=== PATIENT | male | born 1980 | race Caucasian/White ===

== ENCOUNTER 2017-06-11 16:31 | Inpatient (IN) | payer OTHER ==
[2017-06-11] MEDS ORDERED: SODIUM CHLORIDE 1,000 ML IV STA (17:25)
--- NOTE | 2017-06-11 17:25 | PDOC ---
Attending Attestation - HPI HPI: 06/11/17 19:02 The patient is a 36-year-old male who is homeless, with a significant past medical history of seizure disorder and schizophrenia, who presents to the ED via EMS, after being found seizing in a [place]. brought by ambulance to the ED after being found in a [place] seizing. The patient's seizure lasted for a few minutes and was accompanied a post ictal period that lasted approximately 30 minutes. He reports that he used to be on depakote for his seizures, but cannot afford the medication. On exam, the patient reports that he fell onto his right side and is now complaining of right arm and leg pain. <Aneta Bae - Last Filed: 06/11/17 19:11> - Resident Resident Name: Vincenzo Kam - ED Attending Attestation I have performed the following: I have examined & evaluated the patient, The case was reviewed & discussed with the resident, I agree w/resident's findings & plan, Exceptions are as noted - Physicial Exam PE: 06/11/17 20:29 Agree with resident's physical exam - Medical Decision Making 06/11/17 20:34 Undomiciled with seizure history schizophrenia and on any medications some suicidal ideation patient placed on one-to-one we'll CT head labs loaded with Depakote likely observe psychiatric consultation. <Roger Ramirez - Last Filed: 06/11/17 20:34> Attestations - Attestations 06/11/17 19:10 Documentation prepared by Aneta Bae, acting as biomedical equipment support specialist for Roger Ramirez MD. <Aneta Bae - Last Filed: 06/11/17 19:11>
[2017-06-11 17:26] VITALS: BMI 28.3
--- NOTE | 2017-06-11 17:33 | PDOC ---
History of Present Illness - General Chief Complaint: Seizure Stated Complaint: SEIZURE Time Seen by Provider: 06/11/17 17:02 History Source: Patient Exam Limitations: No Limitations - History of Present Illness Initial Comments: 06/11/17 17:27 36M with h/o seizure disorder and schizophrenia brought by ambulance to the ED after being [place] in a [place] seizing. According to patient he was seizing for a couple of minutes and post ictal period of 30 min with loss of feces. Patient is homeless and has currently no resources, no possible follow up or outside treatment. Used to take Depakote, doesn't remember the last time he has a seizure. said he fell on his left side, which hurts. 06/11/17 17:52 06/11/17 18:00 Past History - Past Medical History Allergies/Adverse Reactions: Allergies Allergy/AdvReac Type Severity Reaction Status Date / Time No Known Allergies Allergy Verified 06/11/17 17:26 Home Medications: Ambulatory Orders Unobtainable [Unobtainable] 06/11/17 COPD: No Psychiatric Problems: Yes (schizophrenic) Seizures: Yes - Suicide/Smoking/Psychosocial Hx Smoking History: Unknown if ever smoked Have you smoked in the past 12 months: No Number of Cigarettes Smoked Daily: 20 Information on smoking cessation initiated: No Hx Alcohol Use: No Drug/Substance Use Hx: No Substance Use Type: Alcohol, Marijuana Review of Systems - Review of Systems Able to Perform ROS?: Yes Is the patient limited Maori proficient: No Constitutional: No: Symptoms Reported HEENTM: No: Symptoms Reported Respiratory: No: Symptoms reported Cardiac (ROS): No: Symptoms Reported ABD/GI: No: Symptoms Reported : No: Symptoms Reported Musculoskeletal: No: Symptoms Reported Integumentary: No: Symptoms Reported Neurological: No: Symptoms reported All Other Systems: Reviewed and Negative *Physical Exam - Vital Signs Last Vital Signs Temp Pulse Resp BP Pulse Ox 98.5 F 92 H 18 121/71 99 06/11/17 16:31 06/11/17 16:31 06/11/17 16:31 06/11/17 16:31 06/11/17 16:31 - Physical Exam General Appearance: Yes: Disheveled HEENT: positive: EOMI, AMAIRANI, Normal ENT Inspection Respiratory/Chest: positive: Lungs Clear, Normal Breath Sounds. negative: Chest Tender, Respiratory Distress Cardiovascular: positive: Regular Rhythm, Regular Rate, S1, S2 Gastrointestinal/Abdominal: positive: Normal Bowel Sounds Musculoskeletal: positive: Decreased Range of Motion (pain over left hip/leg) Integumentary: positive: Normal Color, Warm Neurologic: positive: Responsive, Other (Flat affect). negative: Sensory Deficit ED Treatment Course - LABORATORY CBC & Chemistry Diagram: 06/11/17 18:50 06/11/17 18:50 - RADIOLOGY Radiology Studies Ordered: Category Date Time Status HEAD CT WITHOUT CONTRAST [CT] Stat CT Scan 06/11/17 17:25 Ordered Medical Decision Making - Medical Decision Making 06/11/17 18:00 basic lab worsup to r/o rhabdo ct head and hip xray for trauma 06/11/17 18:23 Patient admitted to hearing voices laughing at him and he wants to hurt himself. 1:1 care ordered. 06/11/17 18:24 06/11/17 18:57 Imaging and labs pending 06/11/17 19:[address] Franco *DC/Admit/Observation/Transfer Diagnosis at time of Disposition: Seizure - Referrals - Patient Instructions - Post Discharge Activity
--- NOTE | 2017-06-11 19:09 | PDOC ---
*Physical Exam - Vital Signs Last Vital Signs Temp Pulse Resp BP Pulse Ox 98.5 F 92 H 18 121/71 99 06/11/17 16:31 06/11/17 16:31 06/11/17 16:31 06/11/17 16:31 06/11/17 16:31 ED Treatment Course - LABORATORY CBC & Chemistry Diagram: 06/11/17 18:50 06/11/17 18:50 - Medications Given in the ED: ED Medications Discontinued Medications Generic Name Dose Route Start Last Admin Trade Name Freq PRN Reason Stop Dose Admin Sodium Chloride 1,000 mls @ 1,000 mls/hr 06/11/17 17:25 06/11/17 18:54 Normal Saline - IV 06/11/17 18:24 1,000 mls/hr ASDIR STA Administration Medical Decision Making - Medical Decision Making 06/11/17 19:08 Care taken over from Dr. Kam. 06/11/17 21:[address] Seaman who will evaluate in the AM. 06/12/17 01:31 Patient noted to have tremors and tongue fasciculations. Admits to drinking often and that last drink was 2 days ago. Librium 100 PO given for symptomatic treatment. *DC/Admit/Observation/Transfer Diagnosis at time of Disposition: Seizure - Discharge Dispostion Admit: Yes - Referrals - Patient Instructions - Post Discharge Activity
[2017-06-11 19:10] LABS: BASO % 0.3 % (0-2.0); EOS % 1.6 % (0-4.5); HEMATOCRIT 41.3 % (35.4-49); HEMOGLOBIN 14.1 GM/dL (11.7-16.9); LYMPH % 24.2 % (8-40); MCH 29.2 pg (25.7-33.7); MCHC 34.1 g/dl (32.0-35.9); MEAN CELL VOLUME 85.4 fl (80-96); MEAN PLT VOLUME 8.4 fl (7.5-11.1); MONO % 9.8 % (3.8-10.2); NEUT % 64.1 % (42.8-82.8); PLATELET COUNT 202 K/MM3 (134-434); RBC 4.83 M/mm3 (4.00-5.60); RDW 14.4 % (11.9-15.9); URINE APPEARANCE CLOUDY; URINE BILIRUBIN NEGATIVE (NEGATIVE); URINE BLOOD NEGATIVE (NEGATIVE); URINE COLOR YELLOW; URINE GLUCOSE (UA) NEGATIVE (NEGATIVE); URINE KETONE NEGATIVE (NEGATIVE); URINE LEUK ESTERASE NEGATIVE (NEGATIVE); URINE NITRITE NEGATIVE (NEGATIVE); URINE PROTEIN NEGATIVE (NEGATIVE)
[2017-06-11 19:39] LABS: ALBUMIN 4.1 g/dl (3.4-5.0); ANION GAP 7 (8-16); BLOOD UREA NITROGEN 14 mg/dL (7-18); CALCIUM 8.5 mg/dL (8.5-10.1); CHLORIDE 106 mmol/L (98-107); CO2 26 mmol/L (21-32); GLUCOSE,RANDOM 89 mg/dL (74-106); POTASSIUM 3.7 mmol/L (3.5-5.1); SODIUM 139 mmol/L (136-145)
[2017-06-11 19:44] LABS: ALK PHOS 66 U/L (45-117); BILIRUBIN,TOTAL 0.3 mg/dL (0.2-1.0); CREATININE 0.8 mg/dL (0.7-1.3); SGOT/AST 18 U/L (15-37); SGPT/ALT 39 U/L (12-78); TOT PROT 7.7 g/dl (6.4-8.2)
[2017-06-11 20:15] LABS: COCAINE, UR NEGATIVE ng/ml (CUTOFF=300); METHADONE, UR NEGATIVE ng/ml (CUTOFF=300); OPIATES, URI NEGATIVE ng/ml (CUTOFF=300); PHENCYCLIDINE,URINE NEGATIVE ng/ml (CUTOFF=25); URINE AMPHETAMINES NEGATIVE ng/ml (CUTOFF=500); URINE BARBITURATES NEGATIVE ng/ml (CUTOFF=200); URINE BENZODIAZEPINES NEGATIVE ng/ml (CUTOFF=200)
[2017-06-11] MEDS ORDERED: VALPROIC ACID 250 MG CAPSULE PO ONE ×2 (20:24→20:25)
[2017-06-11] MEDS ORDERED: DIVALPROEX SODIUM 500 MG TABLET E.C. ONE (20:34)
[2017-06-12] MEDS ORDERED: ACETAMINOPHEN 500 MG TABLET (FP) PO ONE (01:14)
[2017-06-12] MEDS ORDERED: chlordiazePOXIDE HCL 25 MG CAPSULE PO ONE (01:21)
[2017-06-12] MEDS ORDERED: ACETAMINOPHEN 325 MG TABLET (FP) ONE (01:26)
[2017-06-12] MEDS ORDERED: chlordiazePOXIDE HCL 25 MG CAPSULE ONE (01:26)
[2017-06-12] MEDS ORDERED: VALPROIC ACID 250 MG CAPSULE PO ONE (06:31)
[2017-06-12] MEDS ORDERED: DIVALPROEX SODIUM 500 MG TABLET E.C. ONE (06:38)
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
[2017-06-12] MEDS: SODIUM CHLORIDE 1,000 ML IV SCH ×2 (08:33→22:56)
[2017-06-12] MEDS ORDERED: levETIRAcetam 500 MG/5 ML INJECTION VIAL IVPB ONE (12:03)
[2017-06-12] MEDS: chlordiazePOXIDE HCL 25 MG CAPSULE PO SCH ×3 (12:07→22:13)
[2017-06-12] MEDS ORDERED: chlordiazePOXIDE HCL 25 MG CAPSULE PO PRN (12:15)
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
[2017-06-12] MEDS ORDERED: THIAMINE HCL 200 MG/2 ML VIAL IVPB ONE (13:30)
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
[2017-06-12 14:24] LABS: MAGNESIUM 1.9 mg/dL (1.8-2.4); PHOSPHOROUS 3.3 mg/dL (2.5-4.9); POTASSIUM 3.7 mmol/L (3.5-5.1)
[2017-06-12] MEDS: HEPARIN NA (PORCINE) 5,000 UNITS/ML 1ML VIAL SQ SCH ×2 (14:39→21:03)
[2017-06-12] MEDS ORDERED: PNEUMOC 13-VAL CONJ-DIP CRM/PF 0.5 ML DISP.SYRIN IM ONE (15:10)
[2017-06-12] MEDS ORDERED: FLU VACCINE QUAD 60 MCG/0.5 ML (MDV 17-18) IM ONE (15:30)
[2017-06-12] MEDS ORDERED: PNEUMOCOCCAL 23 VACCINE 0.5 ML VIAL IM ONE (15:30)
--- NOTE | 2017-06-12 16:35 | EKG ---
Test Reason : Blood Pressure : / mmHG Vent. Rate : 079 BPM Atrial Rate : 079 BPM P-R Int : 000 ms QRS Dur : 070 ms QT Int : 346 ms P-R-T Axes : 000 061 020 degrees QTc Int : 396 ms POOR DATA QUALITY, INTERPRETATION MAY BE ADVERSELY AFFECTED NORMAL SINUS RHYTHM NONSPECIFIC ST ABNORMALITY ABNORMAL ECG NO PREVIOUS ECGS AVAILABLE Confirmed by MORENA LORD MD ([id number]) on 06/12/2017 4:35:05 PM Referred By: Confirmed By:MORENA LORD MD
[2017-06-12] MEDS: VALPROIC ACID 250 MG CAPSULE PO SCH (17:13)
[2017-06-12] MEDS: OLANZapine 7.5 MG TABLET PO SCH (21:03)
[2017-06-12] MEDS ORDERED: levETIRAcetam 500 MG/5 ML INJECTION VIAL IVPB SCH (22:00)
[2017-06-13] MEDS: HEPARIN NA (PORCINE) 5,000 UNITS/ML 1ML VIAL SQ SCH ×3 (05:54→21:27)
[2017-06-13] MEDS: VALPROIC ACID 250 MG CAPSULE PO SCH ×2 (05:55→17:22)
[2017-06-13] MEDS: chlordiazePOXIDE HCL 25 MG CAPSULE PO SCH (05:57)
[2017-06-13 08:40] LABS: BASO % 0.4 % (0-2.0); EOS % 2.2 % (0-4.5); HEMATOCRIT 39.5 % (35.4-49); HEMOGLOBIN 13.5 GM/dL (11.7-16.9); LYMPH % 27.9 % (8-40); MCH 29.4 pg (25.7-33.7); MCHC 34.2 g/dl (32.0-35.9); MEAN CELL VOLUME 86.1 fl (80-96); MEAN PLT VOLUME 8.4 fl (7.5-11.1); MONO % 8.5 % (3.8-10.2); PLATELET COUNT 141 K/MM3 (134-434); RBC 4.59 M/mm3 (4.00-5.60); RDW 14.3 % (11.9-15.9); WHITE BLOOD COUNT 5.9 K/mm3 (4.0-10.0)
[2017-06-13 09:00] LABS: ANION GAP 8 (8-16); BLOOD UREA NITROGEN 11 mg/dL (7-18); CALCIUM 8.1 mg/dL (8.5-10.1); CHLORIDE 113 mmol/L (98-107); CO2 24 mmol/L (21-32); CREATININE 0.8 mg/dL (0.7-1.3); GLUCOSE,RANDOM 80 mg/dL (74-106); MAGNESIUM 2.1 mg/dL (1.8-2.4); POTASSIUM 3.6 mmol/L (3.5-5.1); SODIUM 145 mmol/L (136-145)
[2017-06-13] MEDS ORDERED: chlordiazePOXIDE HCL 25 MG CAPSULE PO SCH (11:00)
[2017-06-13] MEDS ORDERED: PT OWN MED DRAWER 7, Y5N ONE ×2 (11:13→20:22)
[2017-06-13] MEDS: THIAMINE HCL 100 MG TABLET (FP) PO SCH (11:21)
[2017-06-13] MEDS: FOLIC ACID 1 MG TABLET (FP) PO SCH (11:22)
[2017-06-13] MEDS: SODIUM CHLORIDE 1,000 ML IV SCH (11:23)
--- NOTE | 2017-06-13 15:07 | PN ---
Progress Note (short form) - Note Progress Note: Psych follow up: Still on 1:1. reports hearing voices, still vague about suicidal ideas and plans.ON Librium detox which should bne discontinued. Patient appears sedated. NO behavioral disturbences at this time. PLan: May need IN Patient Psych Admission if he continues to hear voices tellingt him to Kill himself.
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
[2017-06-13] MEDS ORDERED: ACETAMINOPHEN 325 MG TABLET (FP) ONE (19:46)
[2017-06-13] MEDS: ACETAMINOPHEN 325 MG TABLET (FP) PO PRN (19:59)
[2017-06-13] MEDS: OLANZapine 7.5 MG TABLET PO SCH (22:00)
[2017-06-13] MEDS: POLYETHYLENE GLYCOL 3350 119 GM BTL PO SCH (22:36)
[2017-06-13] MEDS ORDERED: chlordiazePOXIDE 5 MG CAPSULE PO ONE (23:45)
[2017-06-14] MEDS: HEPARIN NA (PORCINE) 5,000 UNITS/ML 1ML VIAL SQ SCH ×3 (06:00→21:57)
[2017-06-14] MEDS: VALPROIC ACID 250 MG CAPSULE PO SCH ×2 (06:15→17:38)
[2017-06-14] MEDS ORDERED: PT OWN MED DRAWER 7, Y5N ONE ×2 (08:59→17:35)
[2017-06-14] MEDS: FOLIC ACID 1 MG TABLET (FP) PO SCH (09:04)
[2017-06-14] MEDS: THIAMINE HCL 100 MG TABLET (FP) PO SCH (09:04)
[2017-06-14] MEDS: POLYETHYLENE GLYCOL 3350 119 GM BTL PO SCH ×2 (09:10→21:56)
[2017-06-14] MEDS: SODIUM CHLORIDE 1,000 ML IV SCH (09:17)
[2017-06-14] MEDS ORDERED: chlordiazePOXIDE 5 MG CAPSULE PO SCH (11:00)
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
--- NOTE | 2017-06-14 14:55 | PN ---
Progress Note (short form) - Note Progress Note: Patient seen for Psych follow up: Patient is onh 1:1. MS: alert, oriented, able to make eye contact. patient continues to hear voices telling him bad things ant to hurt himself. Patient displaying Blunted affect. Cognition Intact. Plan: 1: Continue with 1:1 2) Transfer to Psych In Patient unit for psych Stabilization
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
[2017-06-14] MEDS: DOCUSATE SODIUM 100 MG CAPSULE (FP) PO SCH (21:55)
[2017-06-14] MEDS: OLANZapine 7.5 MG TABLET PO SCH (21:56)
[2017-06-14] MEDS ORDERED: chlordiazePOXIDE 5 MG CAPSULE PO ONE (23:28)
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
[2017-06-15] MEDS: VALPROIC ACID 250 MG CAPSULE PO SCH ×2 (06:12→17:16)
[2017-06-15] MEDS: HEPARIN NA (PORCINE) 5,000 UNITS/ML 1ML VIAL SQ SCH ×3 (06:12→21:15)
[2017-06-15] MEDS: SODIUM CHLORIDE 1,000 ML IV SCH ×2 (07:19→20:14)
[2017-06-15] MEDS: FOLIC ACID 1 MG TABLET (FP) PO SCH (09:31)
[2017-06-15] MEDS: POLYETHYLENE GLYCOL 3350 119 GM BTL PO SCH ×2 (09:31→21:15)
[2017-06-15] MEDS: THIAMINE HCL 100 MG TABLET (FP) PO SCH (09:31)
[2017-06-15] MEDS ORDERED: PT OWN MED DRAWER 7, Y5N ONE ×2 (17:11→21:13)
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
[2017-06-15] MEDS: ACETAMINOPHEN 325 MG TABLET (FP) PO PRN (20:13)
[2017-06-15] MEDS: OLANZapine 2.5 MG TABLET PO SCH (21:15)
[2017-06-15] MEDS: DOCUSATE SODIUM 100 MG CAPSULE (FP) PO SCH (21:15)
[2017-06-15] MEDS ORDERED: OLANZAPINE 2.5 MG, OLANZAPINE 5 MG PO SCH (22:00)
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
[2017-06-16] MEDS: HEPARIN NA (PORCINE) 5,000 UNITS/ML 1ML VIAL SQ SCH ×3 (06:14→21:14)
[2017-06-16] MEDS: VALPROIC ACID 250 MG CAPSULE PO SCH ×2 (06:14→17:00)
[2017-06-16] MEDS: FOLIC ACID 1 MG TABLET (FP) PO SCH (11:23)
[2017-06-16] MEDS: THIAMINE HCL 100 MG TABLET (FP) PO SCH (11:23)
[2017-06-16] MEDS: POLYETHYLENE GLYCOL 3350 119 GM BTL PO SCH ×2 (14:07→21:13)
[2017-06-16] MEDS ORDERED: PT OWN MED DRAWER 7, Y5N ONE (16:32)
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
[2017-06-16] MEDS: ACETAMINOPHEN 325 MG TABLET (FP) PO PRN (20:24)
[2017-06-16] MEDS: DOCUSATE SODIUM 100 MG CAPSULE (FP) PO SCH (21:13)
[2017-06-16] MEDS: OLANZapine 2.5 MG TABLET PO SCH (21:17)
[2017-06-17] MEDS: SODIUM CHLORIDE 1,000 ML IV SCH ×2 (03:24→15:08)
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
[2017-06-17] MEDS: VALPROIC ACID 250 MG CAPSULE PO SCH ×2 (06:02→18:01)
[2017-06-17] MEDS: HEPARIN NA (PORCINE) 5,000 UNITS/ML 1ML VIAL SQ SCH ×3 (06:02→21:36)
[2017-06-17] MEDS: THIAMINE HCL 100 MG TABLET (FP) PO SCH (10:09)
[2017-06-17] MEDS: FOLIC ACID 1 MG TABLET (FP) PO SCH (10:09)
[2017-06-17] MEDS: POLYETHYLENE GLYCOL 3350 119 GM BTL PO SCH ×2 (10:09→21:36)
--- NOTE | 2017-06-17 14:07 | PN ---
Progress Note (short form) - Note Progress Note: Psycvh follow up: Patient had been on 1:1 for suicidal thinking and behaviour. p[atient had been reporting Command Hallucinations and has guilt feelings about loss of his family members, Voices are accusatory and blaming him for their . told Nurse this am that he is dtill feeling Suicidal. He reiterated same thing tyo me as well. Plan: Transfer to In Patient psych unit for further evaluation and treatment.
[2017-06-17] MEDS ORDERED: PT OWN MED DRAWER 7, Y5N ONE ×2 (17:52→21:33)
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
[2017-06-17] MEDS: DOCUSATE SODIUM 100 MG CAPSULE (FP) PO SCH (21:36)
[2017-06-17] MEDS: OLANZapine 2.5 MG TABLET PO SCH (21:37)
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
[2017-06-18] MEDS: HEPARIN NA (PORCINE) 5,000 UNITS/ML 1ML VIAL SQ SCH ×3 (06:07→21:42)
[2017-06-18] MEDS: VALPROIC ACID 250 MG CAPSULE PO SCH ×2 (06:07→17:37)
[2017-06-18] MEDS: POLYETHYLENE GLYCOL 3350 119 GM BTL PO SCH ×3 (06:09→21:44)
[2017-06-18] MEDS: THIAMINE HCL 100 MG TABLET (FP) PO SCH (09:57)
[2017-06-18] MEDS: FOLIC ACID 1 MG TABLET (FP) PO SCH (09:57)
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
[2017-06-18] MEDS ORDERED: PT OWN MED DRAWER 7, Y5N ONE ×3 (17:19→17:36)
[2017-06-18] MEDS: ACETAMINOPHEN 325 MG TABLET (FP) PO PRN (17:31)
[2017-06-18] MEDS: DOCUSATE SODIUM 100 MG CAPSULE (FP) PO SCH (21:42)
[2017-06-18] MEDS: OLANZapine 2.5 MG TABLET PO SCH (21:43)
[2017-06-19] MEDS ORDERED: PT OWN MED DRAWER 7, Y5N ONE ×3 (05:45→21:31)
[2017-06-19] MEDS: POLYETHYLENE GLYCOL 3350 119 GM BTL PO SCH ×3 (06:23→21:37)
[2017-06-19] MEDS: HEPARIN NA (PORCINE) 5,000 UNITS/ML 1ML VIAL SQ SCH (06:23)
[2017-06-19] MEDS: VALPROIC ACID 250 MG CAPSULE PO SCH ×2 (06:23→17:40)
[2017-06-19] MEDS: THIAMINE HCL 100 MG TABLET (FP) PO SCH (09:51)
[2017-06-19] MEDS: FOLIC ACID 1 MG TABLET (FP) PO SCH (09:51)
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
[2017-06-19] MEDS: ACETAMINOPHEN 325 MG TABLET (FP) PO PRN (16:46)
[2017-06-19] MEDS: DOCUSATE SODIUM 100 MG CAPSULE (FP) PO SCH (21:35)
[2017-06-19] MEDS: OLANZapine 2.5 MG TABLET PO SCH (21:36)
[2017-06-20] MEDS ORDERED: PT OWN MED DRAWER 7, Y5N ONE ×2 (05:42→14:13)
[2017-06-20] MEDS: VALPROIC ACID 250 MG CAPSULE PO SCH (05:46)
[2017-06-20] MEDS: POLYETHYLENE GLYCOL 3350 119 GM BTL PO SCH ×2 (05:47→15:47)
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
[2017-06-20] MEDS: THIAMINE HCL 100 MG TABLET (FP) PO SCH (10:49)
[2017-06-20] MEDS: FOLIC ACID 1 MG TABLET (FP) PO SCH (10:49)
[2017-06-20 15:05] VITALS: BP 101/57; PULSE 80; TEMP 97.8
--- NOTE | 2017-06-20 15:30 | PN ---
Progress Note (short form) - Note Progress Note: Psych follow up: Patient seen for psych follow up. Has been on 1:1 for auditory hallucinations and suicidal thoughts. Patient has responded to Zyprexa well. Has been sleeping and eating well. No reports of any self damaging behaviour. Patient feels he is better and wants to be discharged. He will go to [facility] where he is known and will stay and seek mental health services there. Plan. D/C 1:1 2) Discharge if he is medically stable. 3) zyprexa 5mg po hs.
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
== END 2017-06-20 17:00 | disposition home or self-care (01) | DRG 53 ==
LOC: JER 16:31 → JERBED 06-12 06:33 → OBSVTOIN 06-12 06:33 → J8W 06-12 10:13
PROVIDERS: ADMIT Internal Medicine; ATTEND Internal Medicine
PROC: HZ2ZZZZ Detoxification Services for Substance Abuse Treatment (ICD-10-PCS; principal; 2017-06-12)
DX: G40.89 Other seizures (principal); R45.851 Suicidal ideations; G93.89 Other specified disorders of brain; F20.9 Schizophrenia, unspecified; Z59.0 Homelessness; F12.10 Cannabis abuse, uncomplicated; F10.239 Alcohol dependence with withdrawal, unspecified; Y90.0 Blood alcohol level of less than 20 mg/100 ml; F17.210 Nicotine dependence, cigarettes, uncomplicated; Z91.14 Patient's other noncompliance with medication regimen; Z87.820 Personal history of traumatic brain injury; R51 Headache
CPT/HCPCS: 36415; 70450-TC; 73523-TC; 73610-TC-RT; 73630-TC-RT; 80048; 80053; 80164; 80307; 81003; 83735; 84100; 84132; 85025; 90688; 90732; 93005; 93010; 99285-25; G0009; J1644

== ENCOUNTER 2017-06-22 23:09 | Emergency (ER) | payer OTHER ==
[2017-06-22 23:25] VITALS: BMI 26.6
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
[2017-06-23] MEDS ORDERED: DIVALPROEX SODIUM 500 MG TABLET E.C. PO ONE (01:41)
[2017-06-23] MEDS ORDERED: levETIRAcetam 500 MG/5 ML INJECTION VIAL IVPB ONE (01:42)
[2017-06-23] MEDS ORDERED: DIVALPROEX SODIUM 500 MG TABLET E.C. ONE (01:51)
[2017-06-23 02:00] LABS: BASO % 0.6 % (0-2.0); EOS % 1.9 % (0-4.5); HEMATOCRIT 43.2 % (35.4-49); HEMOGLOBIN 14.4 GM/dL (11.7-16.9); LYMPH % 23.8 % (8-40); MCH 29.5 pg (25.7-33.7); MCHC 33.3 g/dl (32.0-35.9); MEAN CELL VOLUME 88.5 fl (80-96); MEAN PLT VOLUME 8.6 fl (7.5-11.1); MONO % 14.5 % (3.8-10.2); NEUT % 59.2 % (42.8-82.8); PLATELET COUNT 136 K/MM3 (134-434); RBC 4.88 M/mm3 (4.00-5.60); RDW 15.2 % (11.9-15.9); WHITE BLOOD COUNT 8.8 K/mm3 (4.0-10.0)
[2017-06-23] MEDS ORDERED: levETIRAcetam 500 MG TABLET (FP) PO ONE (02:03)
[2017-06-23 02:34] LABS: ALK PHOS 52 U/L (45-117); ANION GAP 8 (8-16); BILIRUBIN,TOTAL 0.3 mg/dL (0.2-1.0); BLOOD UREA NITROGEN 15 mg/dL (7-18); CHLORIDE 106 mmol/L (98-107); CO2 26 mmol/L (21-32); CREATININE 0.8 mg/dL (0.7-1.3); GLUCOSE,RANDOM 74 mg/dL (74-106); SGPT/ALT 59 U/L (12-78); SODIUM 140 mmol/L (136-145); TOT PROT 7.9 g/dl (6.4-8.2)
[2017-06-23 02:44] LABS: POTASSIUM 3.9 mmol/L (3.5-5.1); SGOT/AST 27 U/L (15-37)
--- NOTE | 2017-06-23 06:16 | PDOC ---
*Physical Exam - Vital Signs Last Vital Signs Temp Pulse Resp BP Pulse Ox 98.7 F 101 H 16 103/69 97 06/22/17 23:22 06/22/17 23:22 06/23/17 00:31 06/22/17 23:22 06/22/17 23:22 ED Treatment Course - LABORATORY CBC & Chemistry Diagram: 06/23/17 01:53 06/23/17 01:53 - ADDITIONAL ORDERS Additional order review: Laboratory Results 06/23/17 01:53 Sodium 140 Potassium 3.9 Chloride 106 Carbon Dioxide 26 Anion Gap 8 BUN 15 D Creatinine 0.8 Creat Clearance w eGFR > 60 Random Glucose 74 Calcium 9.0 Total Bilirubin 0.3 AST 27 D ALT 59 D Alkaline Phosphatase 52 D Total Protein 7.9 Albumin 4.0 06/23/17 01:53 RBC 4.88 MCV 88.5 MCHC 33.3 RDW 15.2 MPV 8.6 Neutrophils % 59.2 Lymphocytes % 23.8 Monocytes % 14.5 H Eosinophils % 1.9 Basophils % 0.6 - Medications Given in the ED: ED Medications Discontinued Medications Generic Name Dose Route Start Last Admin Trade Name Freq PRN Reason Stop Dose Admin Divalproex Sodium 1,000 mg 06/23/17 01:41 06/23/17 01:53 Depakote - PO 06/23/17 01:42 1,000 mg ONCE ONE Administration Levetiracetam 1,000 mg 06/23/17 01:42 06/23/17 02:03 Keppra Injection - IVPB 06/23/17 01:43 1,000 mg ONCE ONE Administration Medical Decision Making - Medical Decision Making 06/23/17 06:18 patient has not had a seizure since he was given medication early in the shift. Pt to be discharged *DC/Admit/Observation/Transfer Diagnosis at time of Disposition: Seizure - Discharge Dispostion Disposition: HOME Condition at time of disposition: Improved Admit: No - Referrals Referrals: Adolfo Lester DO [Staff Physician] - - Patient Instructions Printed Discharge Instructions: DI for Seizure Disorder -- Adult Additional Instructions: Please follow up with the neurologist referred to you here in the ER. Take medication as directed. - Post Discharge Activity
[2017-06-23 06:34] VITALS: BP 110/60; PULSE 80; TEMP 98
== END 2017-06-23 06:44 | disposition home or self-care (01) ==
LOC: JER 23:09
PROC: 3E033GC Introduction of Other Therapeutic Substance into Peripheral Vein, Percutaneous Approach (ICD-10-PCS; principal; 2017-06-22)
DX: G40.909 Epilepsy, unspecified, not intractable, without status epilepticus (principal); F20.9 Schizophrenia, unspecified; F32.9 Major depressive disorder, single episode, unspecified; Z91.14 Patient's other noncompliance with medication regimen; F12.10 Cannabis abuse, uncomplicated; F17.210 Nicotine dependence, cigarettes, uncomplicated; G93.89 Other specified disorders of brain; Z87.820 Personal history of traumatic brain injury; Z59.0 Homelessness
CPT/HCPCS: 36415; 80053; 85025; 96374; 99282-25

== ENCOUNTER 2017-06-24 20:31 | Inpatient (IN) | payer OTHER ==
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
[2017-06-24 21:06] VITALS: BMI 25.8
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
[2017-06-24] MEDS ORDERED: VALPROIC ACID 250 MG CAPSULE PO ONE (22:16)
[2017-06-24] MEDS ORDERED: OLANZapine 7.5 MG TABLET PO ONE (22:16)
[2017-06-24] MEDS ORDERED: DIVALPROEX SODIUM 500 MG TABLET E.C. ONE (22:43)
[2017-06-24] MEDS ORDERED: OLANZapine 10 MG TABLET ONE (22:43)
[2017-06-24 23:40] LABS: BASO % 0.4 % (0-2.0); EOS % 1.4 % (0-4.5); HEMATOCRIT 39.6 % (35.4-49); HEMOGLOBIN 13.7 GM/dL (11.7-16.9); LYMPH % 19.4 % (8-40); MCH 29.8 pg (25.7-33.7); MCHC 34.5 g/dl (32.0-35.9); MEAN CELL VOLUME 86.6 fl (80-96); MEAN PLT VOLUME 9.1 fl (7.5-11.1); MONO % 8.8 % (3.8-10.2); RBC 4.58 M/mm3 (4.00-5.60); RDW 15.3 % (11.9-15.9); WHITE BLOOD COUNT 6.8 K/mm3 (4.0-10.0)
[2017-06-25 00:33] LABS: URINE APPEARANCE CLOUDY; URINE BILIRUBIN NEGATIVE (NEGATIVE); URINE BLOOD NEGATIVE (NEGATIVE); URINE COLOR YELLOW; URINE GLUCOSE (UA) NEGATIVE (NEGATIVE); URINE KETONE NEGATIVE (NEGATIVE); URINE LEUK ESTERASE NEGATIVE (NEGATIVE); URINE NITRITE NEGATIVE (NEGATIVE); URINE PROTEIN NEGATIVE (NEGATIVE); URINE UROBILINOGEN 4.0 E.U/dl mg/dL (0.2-1.0)
[2017-06-25 00:51] LABS: COCAINE, UR NEGATIVE ng/ml (CUTOFF=300); METHADONE, UR NEGATIVE ng/ml (CUTOFF=300); OPIATES, URI NEGATIVE ng/ml (CUTOFF=300); URINE AMPHETAMINES NEGATIVE ng/ml (CUTOFF=500); URINE BARBITURATES NEGATIVE ng/ml (CUTOFF=200)
[2017-06-25 00:53] LABS: URINE BENZODIAZEPINES POSITIVE ng/ml (CUTOFF=200)
[2017-06-25 00:54] LABS: PHENCYCLIDINE,URINE POSITIVE ng/ml (CUTOFF=25)
[2017-06-25 01:33] LABS: ALBUMIN 3.8 g/dl (3.4-5.0); ANION GAP 8 (8-16); BILIRUBIN,TOTAL 0.2 mg/dL (0.2-1.0); BLOOD UREA NITROGEN 19 mg/dL (7-18); CALCIUM 8.9 mg/dL (8.5-10.1); CHLORIDE 105 mmol/L (98-107); CO2 30 mmol/L (21-32); CREATININE 0.9 mg/dL (0.7-1.3); GLUCOSE,RANDOM 110 mg/dL (74-106); MAGNESIUM 2.2 mg/dL (1.8-2.4); POTASSIUM 4.3 mmol/L (3.5-5.1); SGOT/AST 18 U/L (15-37); SGPT/ALT 45 U/L (12-78); SODIUM 143 mmol/L (136-145); TOT PROT 7.7 g/dl (6.4-8.2)
[2017-06-25 01:34] LABS: ALK PHOS 61 U/L (45-117)
[2017-06-25 03:13] LABS: PLATELET COUNT 193 K/MM3 (134-434)
--- NOTE | 2017-06-25 09:20 | EKG ---
Test Reason : Blood Pressure : / mmHG Vent. Rate : 090 BPM Atrial Rate : 090 BPM P-R Int : 148 ms QRS Dur : 066 ms QT Int : 332 ms P-R-T Axes : 042 050 036 degrees QTc Int : 406 ms POOR DATA QUALITY, INTERPRETATION MAY BE ADVERSELY AFFECTED NORMAL SINUS RHYTHM NORMAL ECG WHEN COMPARED WITH ECG OF 12-JUN-2017 08:22, SINUS RHYTHM HAS REPLACED JUNCTIONAL RHYTHM Confirmed by TINO WHATLEY, YUNIEL ([id number]) on 06/25/2017 9:20:10 AM Referred By: Confirmed By:YUNIEL JIMÉNEZ MD
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
--- NOTE | 2017-06-25 11:05 | CON.PSY ---
Psychiatry Consult Chief Complaint: I want to kill myself. Symptoms: reports: Suicidality, Self destructive thoughts - Previous Psychiatric Treatment Outpatient: Less than 6 mos ago Inpatient: 2 or more prior admissions - Previous Substance Abuse Treatment Outpatient: None Inpatient: None - Reason for Previous Treatment Reason for Previous Treatment: Psychotic Episode - Allergies Allergies: Allergies Allergy/AdvReac Type Severity Reaction Status Date / Time No Known Allergies Allergy Verified 06/24/17 21:00 - Current Living Status Usual Living Arrangement: Alone - Current Mental Status Evaluation Appearance: Disheveled Attitude: Uncooperative - Affect Affect: Constrictive Appropriateness: Not Appropriate - Mood Mood: Irritable - Speech/Language Expressive: Coherent - Psychomotor Activity Psychomotor Activity: Slowed - Thought Process Thought Process: Circumstantial - Thought Content Type: Auditory Delusions: Present Type: Persectory - Self Perception Self Perception: No Impairment - Cognition Attention: Alert Orientation: Time Memory, Immediate Recall: Intact Memory, Short Term: 2/3 Memory, Remote: Impaired - Concentration Serial Sevens Intact: No Simple Calculations Intact: No - Abstraction Proverb Interpretation: Intact Judgement: Moderately Impaired - Insight Insight: Impaired - Impulse Control Impulse Control: Moderately Impaired - Suicidal Ideation Suicidal Ideation: Yes - Homicidal Ideation Homicidal Ideation: No Assessment/Plan AQdmit to In [facility] FOR PSYCH STABILIZATION
--- NOTE | 2017-06-25 18:20 | PDOC ---
*Physical Exam - Vital Signs Last Vital Signs Temp Pulse Resp BP Pulse Ox 98.3 F 86 18 113/77 98 06/24/17 21:01 06/25/17 16:18 06/25/17 16:18 06/25/17 16:18 06/25/17 16:18 - Physical Exam Comments: 06/25/17 18:19 pt with suicidal ideations awaiting placement. will admit. ED Treatment Course - LABORATORY CBC & Chemistry Diagram: 06/24/17 23:11 06/24/17 23:11 - ADDITIONAL ORDERS Additional order review: 06/24/17 23:11 RBC 4.58 MCV 86.6 MCHC 34.5 RDW 15.3 MPV 9.1 Neutrophils % 70.0 Lymphocytes % 19.4 Monocytes % 8.8 Eosinophils % 1.4 Basophils % 0.4 - Medications Given in the ED: ED Medications Discontinued Medications Generic Name Dose Route Start Last Admin Trade Name Freq PRN Reason Stop Dose Admin Olanzapine 7.5 mg 06/24/17 22:16 06/24/17 22:54 Zyprexa - PO 06/24/17 22:17 7.5 mg ONCE ONE Administration Valproic Acid 500 mg 06/24/17 22:16 06/24/17 22:54 Depakene - PO 06/24/17 22:17 500 mg ONCE ONE Administration *DC/Admit/Observation/Transfer Diagnosis at time of Disposition: Suicidal ideation, PCP abuse - Discharge Dispostion Condition at time of disposition: Fair Admit: Yes - Referrals - Patient Instructions - Post Discharge Activity Forms/Work/School Notes: My Personal Safety Plan
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
[2017-06-25] MEDS ORDERED: QUEtiapine FUMARATE 100 MG TABLET (FP) ONE (23:51)
[2017-06-25] MEDS ORDERED: DIVALPROEX SODIUM 500 MG TABLET E.C. ONE (23:51)
[2017-06-25] MEDS: VALPROIC ACID 250 MG CAPSULE PO SCH (23:52)
[2017-06-25] MEDS: QUEtiapine FUMARATE 100 MG TABLET (FP) PO SCH (23:52)
[2017-06-26 05:48] LABS: HEMATOCRIT 39.4 % (35.4-49); HEMOGLOBIN 13.4 GM/dL (11.7-16.9); MCH 29.4 pg (25.7-33.7); MEAN CELL VOLUME 86.6 fl (80-96); MEAN PLT VOLUME 8.1 fl (7.5-11.1); PLATELET COUNT 169 K/MM3 (134-434); RBC 4.55 M/mm3 (4.00-5.60); RDW 15.2 % (11.9-15.9); WHITE BLOOD COUNT 5.7 K/mm3 (4.0-10.0)
[2017-06-26 06:29] LABS: ANION GAP 6 (8-16); BLOOD UREA NITROGEN 15 mg/dL (7-18); CALCIUM 8.5 mg/dL (8.5-10.1); CHLORIDE 107 mmol/L (98-107); CO2 27 mmol/L (21-32); CREATININE 0.8 mg/dL (0.7-1.3); GLUCOSE,RANDOM 83 mg/dL (74-106); PHOSPHOROUS 3.7 mg/dL (2.5-4.9); POTASSIUM 3.4 mmol/L (3.5-5.1); SODIUM 140 mmol/L (136-145)
[2017-06-26] MEDS: QUEtiapine FUMARATE 100 MG TABLET (FP) PO SCH (10:10)
[2017-06-26] MEDS: VALPROIC ACID 250 MG CAPSULE PO SCH ×2 (10:10→21:55)
[2017-06-26] MEDS ORDERED: POTASSIUM CHLORIDE ORAL LIQUID 20 MEQ/15 ML PO ONE (12:59)
--- NOTE | 2017-06-26 12:59 | PN ---
Progress Note (short form) - Note Progress Note: currently asymptomatic. states he is currently not hearing any voices but was hearing them yesterday, but can not recall what they were telling him to do. he has been hearing them on and off for several months. sometimes they tell him to do things but would not inform me of what they tell him. has been in inpatient psychiatric center in the past for these symptoms and told him to start seroquel. unclear if he was taking the medication. stopped his antiseizure medications several months ago. did have a seizure a year ago. denies CP, SOB, fever, chills, N/V/C/D Current Medications Generic Name Dose Route Start Last Admin Trade Name Freq PRN Reason Stop Dose Admin Lorazepam 1 mg 06/25/17 22:03 Ativan - PO Q8H PRN WITHDRAWAL(CONT SUBST) Quetiapine Fumarate 100 mg 06/25/17 21:30 06/26/17 10:10 Seroquel - PO 100 mg DAILY CELIA Administration Valproic Acid 500 mg 06/25/17 22:00 06/26/17 10:10 Depakene - PO 500 mg BID CELIA Administration Last Vital Signs Temp Pulse Resp BP Pulse Ox 98.2 F 82 16 92/59 82 L 06/26/17 12:31 06/26/17 12:31 06/26/17 12:31 06/26/17 12:31 06/26/17 12:31 General NAD, flat affect CV S1 S2 RRR no murmur/rub/gallop Lungs CTA B/L No wheezing/rales/rhonchi Abdomen soft NT/ND Extremities no pedal edema CBCD WBC 5.7 K/mm3 (4.0-10.0) 06/26/17 05:39 RBC 4.55 M/mm3 (4.00-5.60) 06/26/17 05:39 Hgb 13.4 GM/dL (11.7-16.9) 06/26/17 05:39 Hct 39.4 % (35.4-49) 06/26/17 05:39 MCV 86.6 fl (80-96) 06/26/17 05:39 MCHC 34.0 g/dl (32.0-35.9) 06/26/17 05:39 RDW 15.2 % (11.9-15.9) 06/26/17 05:39 Plt Count 169 K/MM3 (134-434) 06/26/17 05:39 MPV 8.1 fl (7.5-11.1) D 06/26/17 05:39 CMP Sodium 140 mmol/L (136-145) 06/26/17 05:39 Potassium 3.4 mmol/L (3.5-5.1) L D 06/26/17 05:39 Chloride 107 mmol/L (98-107) 06/26/17 05:39 Carbon Dioxide 27 mmol/L (21-32) 06/26/17 05:39 Anion Gap 6 (8-16) L 06/26/17 05:39 BUN 15 mg/dL (7-18) D 06/26/17 05:39 Creatinine 0.8 mg/dL (0.7-1.3) 06/26/17 05:39 Creat Clearance w eGFR > 60 (>60) 06/24/17 23:11 Calcium 8.5 mg/dL (8.5-10.1) 06/26/17 05:39 Total Bilirubin 0.2 mg/dL (0.2-1.0) D 06/24/17 23:11 AST 18 U/L (15-37) D 06/24/17 23:11 ALT 45 U/L (12-78) D 06/24/17 23:11 Alkaline Phosphatase 61 U/L (45-117) 06/24/17 23:11 Total Protein 7.7 g/dl (6.4-8.2) 06/24/17 23:11 Albumin 3.8 g/dl (3.4-5.0) 06/24/17 23:11 A/P 36yo M with PMH seizure disorder presented to the ER with suicidal attempt after smoking PCP 1. Suicidal idealiations- possible induced from PCP however can not r/o schizoaffective disorder. will cont seroquel for now. 1:1 observation. no sharp objects or cords in the room 2. Hypokalemia- KCl po 3. Seizure- valproic acid level sub-therapeutic. as pt has not exhibited any seizure like activity. no indication for aggressively increasing level. cont home dosing 4. DVT ppx- EAM 5. has been 2PC committed for involuntarty psych evaluation. awaiting bed availability Visit type - Emergency Visit Emergency Visit: Yes ED Registration Date: 06/25/17 Care time: The patient presented to the Emergency Department on the above date and was hospitalized for further evaluation of their emergent condition. - New Patient This patient is new to me today: Yes Date on this admission: 06/26/17 - Critical Care Critical Care patient: No - Discharge Referral Referred to [facility] No
[2017-06-26] MEDS: LORazepam 1 MG TABLET PO PRN (21:56)
[2017-06-27 08:25] LABS: CHLORIDE 105 mmol/L (98-107); POTASSIUM 3.9 mmol/L (3.5-5.1); SODIUM 140 mmol/L (136-145)
[2017-06-27 08:39] LABS: ANION GAP 9 (8-16); BLOOD UREA NITROGEN 20 mg/dL (7-18); CO2 26 mmol/L (21-32); CREATININE 0.9 mg/dL (0.7-1.3); GLUCOSE,RANDOM 83 mg/dL (74-106); MAGNESIUM 2.3 mg/dL (1.8-2.4)
--- NOTE | 2017-06-27 08:39 | PN ---
Teaching Attending Note Name of Resident: Malissa Olivas ATTENDING PHYSICIAN STATEMENT I saw and evaluated the patient. I reviewed the resident's note and discussed the case with the resident. I agree with the resident's findings and plan as documented. SUBJECTIVE:no complaints. states he has not been hearing voices since last night. no CP, SOB, fever, chills, N/V/C/D, auditory/visual/tactile hallucinations OBJECTIVE: Last Vital Signs Temp Pulse Resp BP Pulse Ox 97.5 F L 64 18 96/62 97 06/27/17 06:00 06/27/17 06:00 06/27/17 06:00 06/27/17 06:00 06/26/17 21:00 General NAD, resting comfortable, flat affect ASSESSMENT AND PLAN: 36yo M with PMH seizure disorder presented to the ER with suicidal attempt after smoking PCP 1. Suicidal idealiations- possible induced from PCP however can not r/o schizoaffective disorder. no longer hearing voices. would benefit from psychiatric evaluation as pt is a threat to himself and others. can not guarantee pt will follow up as outpatient. cont seroquel for now. 1:1 observation. no sharp objects or cords in the room 2. Hypokalemia- resolved 3. Seizure- valproic acid level sub-therapeutic. as pt has not exhibited any seizure like activity. cont home dosing 4. DVT ppx- EAM 5. has been 2PC committed for involuntary psych evaluation. awaiting bed availability
[2017-06-27] MEDS ORDERED: QUEtiapine FUMARATE 50 MG TABLET ONE (08:57)
[2017-06-27] MEDS ORDERED: PT OWN MED DRAWER 7, Y5N ONE (08:57)
[2017-06-27] MEDS: VALPROIC ACID 250 MG CAPSULE PO SCH ×2 (08:59→21:37)
[2017-06-27] MEDS: QUEtiapine FUMARATE 100 MG TABLET (FP) PO SCH (08:59)
--- NOTE | 2017-06-27 12:56 | PN ---
Physical Exam: SUBJECTIVE: Patient seen and examined. Offers no new complaints. No acute events overnight. Patient says he has constant thoughts of telling him to do bad things. He says he tries to clear his head so he wouldn't listen to them. Denies suicidal, homicidal ideations. Denies chest pain, sob, dizziness, abdominal pain, nausea and vomiting. OBJECTIVE: Vital Signs Period Temp Pulse Resp BP Sys/Crum Pulse Ox Last 24 Hr 97.5 F-99.2 F 64-88 16-20 92-114/55-62 96-97 GENERAL: Patient with flat affect, A/o x 3. HEAD: Normal with no signs of trauma. EYES: conjunctiva clear. ENT: oropharynx clear without exudates, moist mucous membranes. NECK: supple. LUNGS: Breath sounds equal, clear to auscultation bilaterally, no wheezes, no crackles, no accessory muscle use. HEART: Regular rate and rhythm, S1, S2 without murmur, rub or gallop. ABDOMEN: Soft, nontender, nondistended, normoactive bowel sounds, no guarding EXTREMITIES: 2+ pulses, warm, well-perfused, no edema. PSYCH: Flat Affect SKIN: Warm, dry, normal turgor, no rashes or lesions noted Laboratory Results - last 24 hr 06/27/17 06:30 Sodium 140 Potassium 3.9 Chloride 105 Carbon Dioxide 26 Anion Gap 9 BUN 20 H D Creatinine 0.9 Random Glucose 83 Calcium 9.0 Magnesium 2.3 Active Medications Generic Name Dose Route Start Last Admin Trade Name Freq PRN Reason Stop Dose Admin Lorazepam 1 mg 06/25/17 22:03 06/26/17 21:56 Ativan - PO 1 mg Q8H PRN Administration WITHDRAWAL(CONT SUBST) Quetiapine Fumarate 100 mg 06/25/17 21:30 06/27/17 08:59 Seroquel - PO 100 mg DAILY CELIA Administration Valproic Acid 500 mg 06/25/17 22:00 06/27/17 08:59 Depakene - PO 500 mg BID CELIA Administration ASSESSMENT/PLAN: 36yo M with PMH seizure disorder presented to the ER with suicidal attempt after smoking PCP #Suicidal Ideations -likely secondary to PCP use vs. Schizoaffective disorder -auditory hallucinations -currently no suicidal/homicidal ideations -1 to 1 observeration -cont. Seroquel 100mg Daily -involuntary psych evaluation by 2 physician consent. -pending transfer to psyche facility. waiting on bed availability #Hypokalemia -Resolved #Seizure -Cont. Home Meds: Valproic ACid 500mg BID -no seizure activity #DVT PPX -Early ambulation Dispo: Will transfer patient to psyche facility pending bed availability. Visit type - Emergency Visit Emergency Visit: Yes ED Registration Date: 06/26/17 Care time: The patient presented to the Emergency Department on the above date and was hospitalized for further evaluation of their emergent condition. - New Patient This patient is new to me today: Yes Date on this admission: 06/27/17 - Critical Care Critical Care patient: No
[2017-06-27] MEDS: LORazepam 1 MG TABLET PO PRN (21:37)
[2017-06-28] MEDS ORDERED: QUEtiapine FUMARATE 50 MG TABLET ONE (09:58)
[2017-06-28] MEDS: QUEtiapine FUMARATE 100 MG TABLET (FP) PO SCH (10:04)
[2017-06-28] MEDS: VALPROIC ACID 250 MG CAPSULE PO SCH (10:04)
--- NOTE | 2017-06-28 11:00 | PN ---
Progress Note (short form) - Note Progress Note: Patient seen for Psych follow up; Has been stable and no reports of any self damaging behaviour. Patiewnt denies any audirory hallucinations commanding him to kill himself. he wants to go back either to [facility] or parents, Plan: Discharge when medically stable. Follow up at [facility].
--- NOTE | 2017-06-28 16:44 | PN ---
Teaching Attending Note Name of Resident: Malissa Olivas ATTENDING PHYSICIAN STATEMENT I saw and evaluated the patient. I reviewed the resident's note and discussed the case with the resident. I agree with the resident's findings and plan as documented. SUBJECTIVE:has no desire to live. still contemplates suicide. has thought about trying to overdose on PCP. states he still hears voices but they have not encouraged him to hurt himself. denies CP, SOB, fever, chills, N/V/C/D OBJECTIVE: Last Vital Signs Temp Pulse Resp BP Pulse Ox 98.8 F 80 20 96/55 100 06/28/17 14:00 06/28/17 14:00 06/28/17 14:00 06/28/17 14:00 06/28/17 09:00 General NAD, resting comfortable, flat affect ASSESSMENT AND PLAN: 36yo M with PMH seizure disorder presented to the ER with suicidal attempt after smoking PCP 1. Suicidal idealiations- possible induced from PCP however can not r/o schizoaffective disorder. continues to have suicidal thoughts. spoke with psychiatry and informed him of what he said. agreed that we should proceed with inpatient care. cont seroquel for now. 1:1 observation. no sharp objects or cords in the room 2. Hypokalemia- resolved 3. Seizure- valproic acid level sub-therapeutic. as pt has not exhibited any seizure like activity. cont home dosing 4. DVT ppx- EAM 5. has been 2PC committed for involuntary psych evaluation. awaiting bed availability. medically cleared for psychiatric treatment
--- NOTE | 2017-06-28 18:40 | DS ---
Physical Exam: SUBJECTIVE: Patient seen and examined. No acute events overnight. Patient slept well as per nurse. Patient states he is having suicidal ideations. He says he has no desire to live anymore. He states he thought about overdosing on PCP again. He denies CP , sob, nausea, vomiting, dizziness, diarrhea, dysuria. OBJECTIVE: Vital Signs Period Temp Pulse Resp BP Sys/Crum Pulse Ox Last 24 Hr 97.5 F-98.8 F 64-80 20-20 96-110/40-64 100-100 PHYSICAL EXAM GENERAL: Patient with flat affect, A/o x 3. HEAD: Normal with no signs of trauma. EYES: conjunctiva clear. ENT: oropharynx clear without exudates, moist mucous membranes. NECK: supple. LUNGS: Breath sounds equal, clear to auscultation bilaterally, no wheezes, no crackles, no accessory muscle use. HEART: Regular rate and rhythm, S1, S2 without murmur, rub or gallop. ABDOMEN: Soft, nontender, nondistended, normoactive bowel sounds, no guarding EXTREMITIES: 2+ pulses, warm, well-perfused, no edema. PSYCH: Flat Affect SKIN: Warm, dry, normal turgor, no rashes or lesions noted LABS HOSPITAL COURSE: Date of Admission:06/26/17 Patient is a 36yo M with H seizure disorder presented to the ER with suicidal attempt after smoking PCP. Patient states he is having suicidal ideations. He says he has no desire to live anymore. He states he thought about overdosing on PCP again if he gets discharged. Patient also had hypokalemia on arrival but resolved when potassium was repleted. Patient was placed on 1 to 1 observation and was seen by Psych. Patient denied suicide with psychiatry but we spoke with psychiatry to inform them what the patient said. Psychiatry agree to proceed with inpatient care. Patient is medically cleared for psychiatric treatment. Patient will be transferred with no changes to his home medications. Date of Discharge: 06/28/17 Minutes to complete discharge: 35 Discharge Summary Reason For Visit: SUICIDAL IDEATION Current Active Problems Bipolar 1 disorder, depressed (Acute) PCP abuse (Acute) Suicidal ideation (Acute) Condition: Stable - Instructions Diet, Activity, Other Instructions: You are being transferred to an inpatient psychiatric facility. Continue your seizure medications. Follow up with your primary care doctor within 1 week of leaving the facility. Referrals: Ashley Seaman MD [Staff Physician] - Disposition: TRANSFER ACUTE CARE/OTHER HOSP - Home Medications Comprehensive Discharge Medication List: Ambulatory Orders Quetiapine Fumarate [Seroquel] 100 mg PO DAILY 06/23/17 Valproic Acid [Depakene -] 500 mg PO BID #60 capsule 06/23/17 This patient is new to me today: Yes Date on this admission: 06/28/17 Emergency Visit: Yes ED Registration Date: 06/26/17 Care time: The patient presented to the Emergency Department on the above date and was hospitalized for further evaluation of their emergent condition. Critical Care patient: No - Discharge Referral Referred to [facility] Med P.C.: No
[2017-06-28 18:50] VITALS: BP 116/73; PULSE 73; TEMP 98.4
== END 2017-06-28 21:42 | disposition short-term general hospital (02) | DRG 775 ==
LOC: JER 20:31 → INTOOBSV 06-25 18:20 → JERBED 06-25 18:20 → INTOOBSV 06-25 21:18 → OBSVTOIN 06-25 21:18 → JERBED 06-26 16:37 → J5S 06-26 17:27
PROVIDERS: ADMIT Internal Medicine; ATTEND Internal Medicine
PROC: HZ2ZZZZ Detoxification Services for Substance Abuse Treatment (ICD-10-PCS; principal; 2017-06-25)
DX: F16.159 Hallucinogen abuse with hallucinogen-induced psychotic disorder, unspecified (principal); R45.851 Suicidal ideations; F20.9 Schizophrenia, unspecified; E87.6 Hypokalemia; I10 Essential (primary) hypertension; G40.89 Other seizures; F12.10 Cannabis abuse, uncomplicated; F31.9 Bipolar disorder, unspecified; F10.10 Alcohol abuse, uncomplicated; Z91.14 Patient's other noncompliance with medication regimen; Z59.0 Homelessness; F17.210 Nicotine dependence, cigarettes, uncomplicated; Y90.0 Blood alcohol level of less than 20 mg/100 ml
CPT/HCPCS: 36415; 71045-TC; 80048; 80053; 80164; 80307; 81003; 83735; 84100; 84439; 84443; 85025; 85027; 93005; 93010; 99284-25; G0378